=== PATIENT | male | born 2005 | race Hispanic/Latino ===

== ENCOUNTER 2025-05-24 11:43 | Emergency (ER) | payer BC ==
[~2025-05-24] VITALS: Ht 170.2 cm; Wt 79.4 kg
[2025-05-24] MEDS: ORPHENADRINE 60MG/2ML IM ONE (12:16)
[2025-05-24] MEDS: TRIAMCINOLONE ACETONIDE 40 MG/ML 1ML VIAL IM ONE (12:16)
[2025-05-24] MEDS ORDERED: METH-662 PO (12:49)
[2025-05-24] MEDS ORDERED: NAPR-1194 PO (12:49)
--- NOTE | 2025-05-24 12:49 | ERN ---
General Chief Complaint: Back Pain-No Injury Stated Complaint: BACK PAIN Time Seen by MD: 11:44 Source: patient History of Present Illness Initial Comments Patient is a 20-year-old male coming in complaining of lower back pain. Patient states he has been evaluated by physical therapist had an x-ray performed and showed bulging L5 and s1. He states his pain waxes and wanes. He also states that the pain radiates down the right gluteal region. Allergies: Coded Allergies: Penicillins (Unverified Allergy, Unknown, 05/24/25) Past Medical History Past Medical History: Other Medical History Other: back pain Past Surgical History: None ROS Dictation CONSTITUTIONAL: No chills, no fever, no weakness, no diaphoresis, no malaise. HEAD/FACE: No signs of trauma. EENT: No eye pain, no blurred vision, no tearing, no double vision, no ear pain, no ear discharge, no nose pain, no nasal congestion, no throat pain, no throat swelling, no mouth pain. RESPIRATORY: No cough, no orthopnea, no SOB, no stridor, no wheezing. CARDIOVASCULAR: No chest pain, no edema, no palpitations, no syncope. GASTROINTESTINAL/ABDOMINAL: No abdominal pain, no constipation, no diarrhea, no nausea, no vomiting. GENITOURINARY: No abnormal discharge, no dysuria, no frequent urination, no hematuria. No complaints of pain in the genitals. MUSCULOSKELETAL: back pain, no gout, no joint pain, no joint swelling, muscle pain, no muscle stiffness, no neck pain. INTEGUMENTARY: No change in color, no change in hair/nails, no dryness, no lesion, no lumps, no rash. NEUROLOGICAL/PSYCH: No anxiety, not depressed, no emotional problem, no headache, no numbness, no pre-existing deficit, no history of seizures, no tremors, no weakness. HEMATOLOGIC/LYMPHATIC: Not anemic, no history of blood clots, no apparent bleeding, no bruising, glands not swollen. All Systems Negative, Except as Noted. Physical Exam Physical Exam Dictation VITAL SIGNS: Reviewed. GENERAL APPEARANCE: Alert, oriented x3, no acute distress, obese. HEAD AND FACE: Non-traumatic. EYES: PERRL, pink conjunctivas, eyelid no trauma, anterior chamber clear. EARS: Pinnas intact and no signs of trauma or erythema. Ear canals clear and no discharge. TMs no erythema. NOSE: No discharge, no bleeding. OROPHARYNX: Mouth normal, teeth no caries, tongue pink. Pharynx clear, no erythema. Tonsils no exudates, no abscesses noted. Mucous membrane moist. NECK: Supple, non-tender, no thyromegaly, no masses, no JVD, no bruits. BREAST: Deferred. CHEST: No tenderness, no crepitus, no paradoxical movement, no retractions. LUNGS: Clear, well-ventilated, symmetric, no rales, no wheezing, no rhonchi, no stridor, good breath sounds bilaterally. HEART: Regular rate, regular rhythm, no murmur, no gallops. VASCULAR: No peripheral edema. ABDOMEN: Soft, positive bowel sounds, nondistended, no guarding, nontender, no rebound, no masses no hepatomegaly, no splenomegaly, no Jett's sign, no hernias. RECTAL: Deferred. GENITAL: Deferred. NEUROLOGICAL: Normal speech, gross motor function intact, gross sensory function intact. 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 SKIN: Color pink, dry, no turgor, no rash, no lacerations, no abrasions, no contusions. LYMPHATICS: Deferred. MDM MDM: Differential diagnosis: Right piriformis, right-sided sciatica, chronic lumbar pain, Rationale: Tests considered and ordered secondary to shared decision making include: Previous outside records reviewed: Old ER visits. Risk of complication and/or morbidity or mortality of patient management: None Medications-Per medication reconciliation Need for hospitalization: Patient does not meet criteria for hospitalization. Patient is a 20-year-old male coming in complaining of right lower extremity pain. She states that the pain radiates from the lumbar region down the right leg. No fever or chills. Patient has been evaluated by PCP and has been [facility] therapy. Patient received anti-inflammatories antispasmodics states he feels better will be discharged in stable condition patient will be referred to program management specialist. ED Course Orders Procedure Category Date Status Time Orphenadrine Citrate PHA 05/24/25 Complete (Norflex) 12:00 Triamcinolone Acet PHA 05/24/25 Complete 40mg/Ml 1ml (Kenalog 12:00 Current Medications Medications (Trade) Dose Ordered Sig/Humberto Route PRN Reason Start Time Stop Time Status Last Admin Dose Admin Orphenadrine Citrate (Norflex) 60 mg ONCE ONCE IM 05/24/25 12:00 05/24/25 12:01 DC 05/24/25 12:16 Triamcinolone Acetonide (Kenalog 40) 40 mg ONCE ONCE IM 05/24/25 12:00 05/24/25 12:01 DC 05/24/25 12:16 Vital Signs Date Time Temp Pulse Resp B/P (MAP) Pulse Ox O2 Delivery O2 Flow Rate FiO2 05/24/25 11:52 97.5 69 16 141/89 98 Room Air* 0 21 05/24/25 11:46 97.5 69 16 141/89 98 Room Air 0 DX & DISP Disposition: Discharge Departure Impression: Primary Impression: Right sided sciatica Condition: Stable Scripts Naproxen (Naproxen) 500 Mg Tablet 1 TAB PO BID for pain for 7 Days, #14 TAB 0 Refills Prov: DIGNA ZUNIGA MD 05/24/25 Methocarbamol (Robaxin) 750 Mg Tab 1 TAB PO BID for 7 Days, #14 TAB 0 Refills Prov: DIGNA ZUNIGA MD 05/24/25 Additional Instructions: FOLLOW-UP WITH PRIMARY CARE PROVIDER IN 1 TO 2 DAYS. TAKE MEDICATIONS DIRECTED HERE IN THE EMERGENCY ROOM. OKAY TO CONTINUE HOME MEDICATIONS UNLESS OTHERWISE DISCUSSED DURING YOUR VISIT IN THE EMERGENCY ROOM TODAY. RETURN TO YOUR NEAREST EMERGENCY ROOM IF SYMPTOMS WORSEN OR IF THERE IS NO IMPROVEMENT. CALL 911 IF YOU NEED IMMEDIATE ASSISTANCE. TAKE TYLENOL [id number] NEEDED AND IF NO CONTRAINDICATIONS ARE PRESENT. INCREASE ORAL HYDRATION. A WOUND CULTURE OR URINE CULTURE WAS ORDERED HERE IN THE EMERGENCY ROOM DEPARTMENT PLEASE FOLLOW-UP WITH PRIMARY CARE PROVIDER AND ADVISE THEM TO GET REPORTS FROM OUR FACILITY. IF YOU HAD ANY VERENICE WRAP/SPLINTS THAT WERE APPLIED HERE, PLEASE DO NOT REMOVE THEM UNTIL YOU SEE YOUR PRIMARY CARE OR SPECIALTY. Referrals: Referrals: SELF,REFERRAL (PCP) MSITA PERES MD, WILLIAM A DO Time of Disposition: 12:48 DIGNA ZUNIGA MD May 24, 2025 12:49
[2025-05-24 12:55] VITALS: BP 119/67; PULSE 84; RESP 16; TEMP 97.9; O2SAT 100
== END 2025-05-24 13:00 | disposition home or self-care (01) ==
LOC: EDH 11:43
DX: M54.31 Sciatica, right side (principal); Z88.0 Allergy status to penicillin
CPT/HCPCS: 99284; 96372 ×2; J3301; J2360